=== PATIENT | female | born 1955 | race Caucasian/White ===

== ENCOUNTER 2018-03-17 11:55 | Emergency (ER) | payer OTHER ==
[2018-03-17] MEDS ORDERED: HYDROCODONE/ACETAMINOPHEN 5-325 MG TABLET PO ONE (12:53)
[2018-03-17] MEDS ORDERED: IBUPROFEN 600 MG TABLET PO ONE (12:53)
--- NOTE | 2018-03-17 12:54 | ER Document Report ---
ED Fall - General Chief Complaint: Fall Stated Complaint: FALL Time Seen by Provider: 03/17/18 12:06 Notes: This is a 62-year-old female patient who slipped on some wet floor while at work. Landed on the left side of her body. Complaining of pain in the left wrist, low back, left hip. Also having some neck pain on the bilateral muscular areas of the cervical spine. Did not lose consciousness. No distracting injuries. No abdominal pain or chest pain. No other complaints at this time. No active bleeding. Able to ambulate at the scene. Was able to take more than 5 steps without assistance or significant pain. [email or web address] voice dictation system was used in the transcribing of this medical document. There may be contextual errors in the compensation analyst which are not actual representations of the patient's history of present illness, physical exam or medical treatment and decision making plans. TRAVEL OUTSIDE OF THE [place] IN LAST 30 DAYS: No - HPI Occurred: Just prior to arrival Where: Work Context: Tripped Associated symptoms: None Quality of pain: Dull Severity: Moderate Pain Level: 3 - Related data Allergies/Adverse Reactions: Sulfa (Sulfonamide Antibiotics) Allergy (Verified 03/17/18 12:35) Tetracyclines Allergy (Verified 03/17/18 12:35) Past Medical History - General Information source: Patient - Social History Smoking Status: Never Smoker Cigarette use (# per day): No Chew tobacco use (# tins/day): No Frequency of alcohol use: None Drug Abuse: None Lives with: Spouse/Significant other Family History: Reviewed & Not Pertinent Patient has suicidal ideation: No Patient has homicidal ideation: No Neurological Medical History: Reports: Hx Migraine Renal/ Medical History: Denies: Hx Peritoneal Dialysis Past Surgical History: Reports: Hx Abdominal Surgery - gasrtric bypass, Hx Orthopedic Surgery - left arm /wrist Review of Systems - Review of Systems Constitutional: No symptoms reported EENT: No symptoms reported Cardiovascular: No symptoms reported Respiratory: No symptoms reported Gastrointestinal: No symptoms reported Genitourinary: No symptoms reported Female Genitourinary: No symptoms reported Musculoskeletal: See HPI, Back pain, Other - Left wrist, left hip, neck Skin: No symptoms reported Hematologic/Lymphatic: No symptoms reported Neurological/Psychological: No symptoms reported Physical Exam - Vital signs Vitals: Temp Pulse Resp BP Pulse Ox 98.3 F 62 16 123/74 97 03/17/18 12:09 03/17/18 12:09 03/17/18 12:09 03/17/18 12:09 03/17/18 12:09 Interpretation: Normal - HEENT Head: Normocephalic Eyes: Normal Conjunctiva: Normal Nasal: Normal Mouth/Lips: Normal Mucous membranes: Normal Pharynx: Normal Neck: Normal, Other - There is some mild tenderness to palpation bilateral paraspinal muscles in the cervical spine. There is no midline tenderness. Nexus criteria negative. - Respiratory Respiratory status: No respiratory distress Chest status: Nontender Breath sounds: Normal Chest palpation: Normal - Cardiovascular Rhythm: Regular Heart sounds: Normal auscultation Murmur: No - Abdominal Inspection: Normal Distension: No distension Bowel sounds: Normal Tenderness: Nontender Organomegaly: No organomegaly - Back Back: Normal, Tender, Other - Mild tenderness palpation at L4-L5 midline. No step-offs. - Extremities General upper extremity: Normal inspection, Tender, Normal color, Normal ROM, Normal temperature, Other - There is some mild tenderness to palpation to the left wrist. No tenderness of the left elbow or left shoulder. General lower extremity: Normal inspection, Normal color, Normal ROM, Normal temperature, Normal weight bearing, Other - There is left hip tenderness to palpation specifically at the lateral trochanter and the gluteus of the left hip.. No: Rola's sign Course - Re-evaluation Re-evalutation: 03/17/18 12:58 At this time patient is Nexus negative. C-spine clear. No LOC. Head CT on warranted. Noticed distracting injuries. Will x-ray the left hip, low back and left wrist. Pain medication and reassess. 03/17/18 14:01 Hip X-Ray 03/17/18 12:53 IMPRESSION: NEGATIVE STUDY OF THE LEFT HIP AND PELVIS. NO RADIOGRAPHIC EVIDENCE OF ACUTE INJURY. Lumbar Spine X-Ray 03/17/18 12:53 IMPRESSION: L5-S1 degenerative disc changes. Mild scoliosis. Wrist X-Ray 03/17/18 12:53 IMPRESSION: Status post ORIF distal radius with no acute abnormality. No evidence of acute fractures. Likely distal fall related contusions and muscles strain. Encourage anti-inflammatories, ice, muscle relaxants. Follow- up with her regular doctor as needed. - Vital Signs Vital signs: Temp Pulse Resp BP Pulse Ox 98.3 F 62 16 123/74 97 03/17/18 12:09 03/17/18 12:09 03/17/18 12:09 03/17/18 12:09 03/17/18 12:09 Discharge - Discharge Clinical Impression: Cervical strain, acute Qualifiers: Encounter type: initial encounter Qualified Code(s): S16.1XXA - Strain of muscle, fascia and tendon at neck level, initial encounter Low back pain Qualifiers: Chronicity: acute Back pain laterality: bilateral Sciatica presence: without sciatica Qualified Code(s): M54.5 - Low back pain Contusion of left hip Qualifiers: Encounter type: initial encounter Qualified Code(s): S70.02XA - Contusion of left hip, initial encounter Disposition: HOME, SELF-CARE Instructions: Contusion ([facility]), Neck Injury (Cervical Strain) ([facility]), Low Back Pain ([facility]) Additional Instructions: Get plenty of rest. Drink plenty of fluids. Ice areas that hurt. Anti- inflammatories every 8 hours for the next 7 days as needed for pain and inflammation. You may try some muscle relaxers at night which may help to get some rest and relax the muscles. Do not mix with alcohol. Do not mix with narcotic medications. Please follow-up with your regular doctor. Return for any worsening symptoms or concerns. Prescriptions: Diazepam [Valium 5 mg Tablet] 5 mg PO BID PRN 7 Days #15 tablet PRN Reason: Muscle Spasms Ibuprofen [Motrin 800 mg Tablet] 800 mg PO Q8H PRN #30 tab PRN Reason: Pain Scale Of 3 Forms: Return to Work
--- NOTE | 2018-03-17 13:52 | RADIOLOGY REPORT (SQ) ---
EXAM DESCRIPTION: WRIST LEFT 3 VIEWS COMPLETED DATE/TIME: 03/17/2018 1:41 pm REASON FOR STUDY: fall,pain COMPARISON: None. NUMBER OF VIEWS: Three views. TECHNIQUE: AP, lateral, and oblique radiographic images acquired of the left wrist. LIMITATIONS: None. FINDINGS: MINERALIZATION: Normal. BONES: There is a volar plate on the distal radius with multiple screws. No acute fracture or disloc ation. SOFT TISSUES: No soft tissue swelling. No foreign body. OTHER: No other significant finding. IMPRESSION: Status post ORIF distal radius with no acute abnormality. TECHNICAL DOCUMENTATION: JOB ID: [id number] [employer]- All Rights Reserved Reading location - IP/workstation name: [email or web address]
--- NOTE | 2018-03-17 13:52 | RADIOLOGY REPORT (SQ) ---
EXAM DESCRIPTION: HIP LEFT AP/LATERAL COMPLETED DATE/TIME: 03/17/2018 1:41 pm REASON FOR STUDY: fall,pain COMPARISON: None. NUMBER OF VIEWS: Two views. TECHNIQUE: AP pelvis and additional frog-leg view of the left hip. LIMITATIONS: None. FINDINGS: MINERALIZATION: Normal. LEFT HIP: No fracture or dislocation. No worrisome bone lesions. RIGHT HIP: No fracture or dislocation. No worrisome bone lesions. PUBIS AND ISCHIUM: No fracture. PELVIS: No fracture. SACRUM: No fracture or dislocation. No worrisome bone lesions. LOWER LUMBAR SPINE: No fracture or dislocation. No worrisome bone lesions. No significant disc disea se. SOFT TISSUES: No findings. OTHER: No other significant finding. IMPRESSION: NEGATIVE STUDY OF THE LEFT HIP AND PELVIS. NO RADIOGRAPHIC EVIDENCE OF ACUTE INJURY. TECHNICAL DOCUMENTATION: JOB ID: [id number] [employer]- All Rights Reserved Reading location - IP/workstation name: [email or web address]
--- NOTE | 2018-03-17 13:54 | RADIOLOGY REPORT (SQ) ---
EXAM DESCRIPTION: L SPINE WHOLE COMPLETED DATE/TIME: 03/17/2018 1:41 pm REASON FOR STUDY: fall,pain COMPARISON: None. NUMBER OF VIEWS: Five views including obliques. TECHNIQUE: AP, lateral, oblique, and sacral radiographic images acquired of the lumbar spine. LIMITATIONS: None. FINDINGS: MINERALIZATION: Normal. SEGMENTATION: Normal. No transitional anatomy. ALIGNMENT: Mild dextroscoliosis at the lumbosacral junction. VERTEBRAE: Maintained height. No fracture or worrisome bone lesion. DISCS: The L5-S1 disc space is narrowed. POSTERIOR ELEMENTS: Pedicles and facets are intact. No pars defect or posterior arch defects. HARDWARE: None in the spine. PARASPINAL SOFT TISSUES: Normal. PELVIS: Intact as visualized. No fractures or worrisome bone lesions. SI joints intact. OTHER: No other significant finding. IMPRESSION: L5-S1 degenerative disc changes. Mild scoliosis. TECHNICAL DOCUMENTATION: JOB ID: [id number] [employer]- All Rights Reserved Reading location - IP/workstation name: [email or web address]
[2018-03-17 14:23] VITALS: BP 122/72
== END 2018-03-17 14:22 | disposition home or self-care (01) ==
LOC: ER 11:55
DX: S16.1XXA Strain of muscle, fascia and tendon at neck level, initial encounter (principal); S70.02XA Contusion of left hip, initial encounter; M25.532 Pain in left wrist; M54.5 Low back pain; W01.0XXA Fall on same level from slipping, tripping and stumbling without subsequent striking against object, initial encounter; Y99.0 Civilian activity done for income or pay; Z88.2 Allergy status to sulfonamides; Z98.84 Bariatric surgery status
CPT/HCPCS: 99284; 73502; 72110; 73110; L3908